=== PATIENT | female | born 1990 | race Hispanic/Latino ===

== ENCOUNTER 2019-07-02 09:29 | Emergency (ER) | payer MEDICAID, OTHER ==
[~2019-07-02 09:29] MED LIST: FERR-82 PO; PREN1TAB89 PO
[2019-07-02 10:00] LABS: APPEARANCE,URINE Cloudy (CLEAR); BILIRUBIN,URINE Negative (NEGATIVE); COLOR,URINE Dark Yellow (YELLOW); GLUCOSE, URINE (UA) Negative (NEGATIVE); KETONES,URINE Trace mg/dL (NEGATIVE); LEUKOCYTE ESTERASE ,URINE Moderate (NEGATIVE); NITRATE,URINE Negative (NEGATIVE); OCCULT BLOOD,URINE Small (NEGATIVE); PH,URINE 5.5 (5.0-8.0); PROTEIN,URINE Trace mg/dL (NEGATIVE)
[2019-07-02] MEDS ORDERED: DEXAMETHASONE 4 MG TAB ONE (10:05)
[2019-07-02 10:07] LABS: HCG,QUAL RESULT NEGATIVE (NEGATIVE)
[2019-07-02 10:08] LABS: RBC,URINE 0-1 /HPF (0-1)
[2019-07-02] MEDS ORDERED: IPRATROPIUM/ALBUTEROL SULFATE 3 ML SOLUTION IH ONE (10:08)
[2019-07-02 10:09] LABS: BACTERIA,URINE Few /HPF (None Seen); MUCUS,URINE Rare LPF (None Seen); SQUAMOUS EPITHELIAL CELL,UR Moderate /HPF (0-2)
[2019-07-02 10:28] LABS: RAPID GROUP A STREP NEGATIVE (NEGATIVE)
== END 2019-07-02 12:00 | disposition home or self-care (01) ==
LOC: EDH 09:29
DX: J20.9 Acute bronchitis, unspecified (principal); N39.0 Urinary tract infection, site not specified
CPT/HCPCS: 71046; 81001; 81025; 87804 ×2; 87880; 94640; 99285; J8540